=== PATIENT | female | born 1950 | race Caucasian/White ===

== ENCOUNTER 2016-07-13 07:24 | Inpatient (IN) ==
[2016-07-13] MEDS ORDERED: CeFAZolin Pre 2,000 MG/100 ML 2,000 MG/100 ML BAG IVPB ONE (07:46)
[2016-07-13] MEDS ORDERED: Ringers Solution, Lactated 1,000 ML IVC SCH ×2 (08:00→15:42)
[2016-07-13] MEDS ORDERED: *HR* Labetalol 100 MG/20 ML MDV IVP PRN (08:08)
[2016-07-13] MEDS ORDERED: Famotidine 20 MG/2 ML VIAL IVP ONE (08:08)
[2016-07-13] MEDS ORDERED: *HR* HYDROmorphone (PF) 1 MG/ML SYRINGE IVP PRN (08:08)
[2016-07-13] MEDS ORDERED: *HR* Promethazine 25 MG/ML VIAL IVP PRN (08:08)
[2016-07-13] MEDS ORDERED: Gabapentin 300 MG CAPSULE PO STA (08:09)
--- NOTE | 2016-07-13 08:16 | Anesthesia Evaluation PreOp ---
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: Denies Any Significant HX Other Medical History: Denies Any Significant HX, Other (maintained on urinary stress incontinence/spasms maintained on Oxybutnin) Anesthesia History: No Prior Anesthetic Complications, Past Anesthesia (R eye strabismus surgery 1952, T&A, Ectopic removal, jaclyn, Appy, BTL, Cardiac Ablation, R-TKR 03/2012, L partial knee replacement 2010) Alcohol Use: none Drug use: none Medications and Allergies Amlodipine [Norvasc] 5 mg PO DAILY 07/13/16 [History] Ascorbate Calcium [Vitamin C] 500 mg PO DAILY 07/13/16 [History] Aspirin 81 mg PO DAILY 07/13/16 [History] Atorvastatin [Lipitor] 40 mg PO HS 07/13/16 [History] Cephalexin [Keflex] 250 mg PO DAILY 07/13/16 [History] Cholecalciferol (D-3) [Vitamin D] 1,000 unit PO DAILY 07/13/16 [History] Cranberry Fruit Extract [Cranberry] 500 mg PO DAILY 07/13/16 [History] Docusate [Colace] 100 mg PO DAILY 07/13/16 [History] Hydrochlorothiazide 12.5 mg PO DAILY 07/13/16 [History] Lisinopril [Zestril] 40 mg PO DAILY 07/13/16 [History] Melatonin [Melatin] 3 mg PO HS 07/13/16 [History] Oxybutynin Chloride [Ditropan Xl] 5 mg PO HS 07/13/16 [History] Allergies band aids Adverse Reaction (Uncoded 07/06/16 08:56) Rash - Meds/Allergy Pre-op Review Medications Reviewed: Yes Allergies Reviewed: Yes Beta Blockers on Current Med List: No Anesthesia Results - Labs Laboratory Tests 12/31/15 07/06/16 07/06/16 08:59 09:10 09:10 Hgb 13.9 Sodium 142 Potassium 3.9 Chloride 106 Carbon Dioxide 29 BUN 19 Creatinine 0.72 Est GFR (Non-Af Amer) > 60 Glucose 88 - Imaging EKG: image reviewed (52bpm w/ 1st degree AVB, borderline LAD) Anesthesia Exam O2 Sat Height 1.61 m Height 1.61 m Weight 85.729 kg Weight 85.729 kg O2 Sat by Pulse Oximetry 91 O2 Sat by Pulse Oximetry 91 Vital Signs Temp Pulse Resp BP Pulse Ox 97.2 F L 68 18 142/84 91 L 07/13/16 07:59 07/13/16 07:59 07/13/16 07:59 07/13/16 07:59 07/13/16 07:59 - HEENT Pupil (Motor): Pupils equal, EOMI Mallampati: II (Gap front upper teeth, Upper R-front tooth chipped) Teeth: Normal Oral Opening: Greater than 3 - FLY FISHING GUIDE LOC: Oriented FLY FISHING GUIDE Motor: Normal RUE, Normal LUE, Normal RLE, Normal LLE, Normal Face FLY FISHING GUIDE Sensory: Normal: RUE, LUE, RLE, LLE, Face - Cardiac Rhythm: Regular Murmur: None JVD: No - Pulmonary Breath Sounds: bilateral Clear Respiratory Effort: Symmetrical Anesthesia Assess/Plan ASA Score: 2 Modified Briana Scale for Level of Consciousness: Cooperative, oriented, and tranquil Anesthetic Plan: General Monitoring Plan: Standard Monitors Recovery Plan: PACU Anes Supervising Prov Stmt: Pt seen/evaluated, R&B discussed, questions answered and consent obtained. Preston Chamberlain MD
[2016-07-13] MEDS ORDERED: Lidocaine -MPF 2% 2 ML VIAL ONE (08:22)
[2016-07-13] MEDS ORDERED: *HR* Midazolam HCl 2 MG/2 ML VIAL ONE (08:22)
[2016-07-13] MEDS ORDERED: *HR* FentaNYL (PF) 100 MCG/2 ML VIAL ONE ×2 (08:22→11:35)
[2016-07-13] MEDS ORDERED: *HR* Propofol 200 MG/20 ML VIAL IVP ONE (08:22)
[2016-07-13] MEDS ORDERED: Ketorolac 30 MG/ML VIAL ONE ×2 (08:22→08:23)
[2016-07-13] MEDS ORDERED: Ondansetron 4 MG/2 ML VIAL ONE (08:22)
[2016-07-13] MEDS ORDERED: *HR* Rocuronium Bromide 50 MG/5 ML VIAL ONE (08:22)
[2016-07-13] MEDS ORDERED: Dexamethasone 4 MG/ML VIAL ONE (08:23)
[2016-07-13] MEDS ORDERED: Lidocaine/EPI 1:100k 1% 20 ML VIAL ONE (08:58)
[2016-07-13] MEDS ORDERED: Lidocaine/EPI 1:200k 1% PF 10 ML VIAL ONE ×2 (08:58→13:18)
[2016-07-13] MEDS ORDERED: Bupivacaine/EPI 1:200k 0.5%PF 30 ML VIAL ONE (08:58)
--- NOTE | 2016-07-13 09:01 | History & Physical Report ---
Date of Encounter: 07/13/16 Time of Encounter: 09:01 24 Hour HP Update - Instructions Instructions: If the History and Physical is less than 30 days old and was completed prior to A.M. admission and or procedure and has NOT been updated on calendar day of procedure please complete this update prior to performing procedure. - Update Patient reports changes in Medical Condition: No Changes in assessment/condition: No Changes in Medication: No Preop tests/diagnostics Reviewed: Yes Surgery Remains Indicated: Yes Consent for Planned Operative Procedure(s) Verified: Yes - Pre-Operative Checklist Preoperative Checklist Indicated: Yes Prophylactic Antibiotic Ordered: Yes Home Medications Include Beta [place]: No Beta [place] Taken Today (Day of Surgery): No Beta [place] Taken Yesterday (Day Prior to Surgery): No Is VTE Prophylaxis Indicated?: Yes
[2016-07-13] MEDS ORDERED: ROPIVACAINE HCL/PF 0.5% 30 ML VIAL ONE (09:49)
[2016-07-13] MEDS ORDERED: EPHEDrine 50 MG/ML VIAL ONE (10:47)
[2016-07-13] MEDS ORDERED: Neostigmine Methylsulfate 3 MG/3 ML SYRINGE ONE (13:10)
--- NOTE | 2016-07-13 14:44 | OB/GYN Procedure Note ---
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 - Diagnosis Date of procedure: 07/13/16 Pre-op diagnosis: Pelvic prolapse, stress urinary incontinence Post-op diagnosis: same - Procedure Procedure: supracervical hyst with bso, tvt, cystoscopy, rectocele repair, sacrocolpex Surgeon: Sky Evans Resourcing Advisor: Lien Dewitt Anesthesia Type: General Estimated blood loss (cc): 400 Fluids: crystalloid Procedure Complications: None Specimens collected: Uterus bilateral fallopian tubes and ovaries Disposition: PACU Findings: Normal uterus tubes and ovaries Narrative: Patient is a 66-year-old female with pelvic prolapse symptoms of difficulty with voiding and recurrent urinary tract infections as well as difficulty with defecation. Patient also pressure symptoms. She desired definitive surgical management was aware of the risks and signed appropriate consent. Description of procedure: Patient was taken operating room where general anesthesia was administered she was prepped and draped in usual sterile fashion in low dorsal lithotomy position. Bladder was drained of clear urine. 30 mL of dilute local was injected behind the symphysis pubis in the left and right side. 2 small stab wounds were then made. 30 mL local was injected below the vaginal mucosa symphysis pubis on the left and right. Small stab wound was made. Using a bladder guide bladder was deflected towards the patient's left side. Oleary blood tinged in the vagina. I did visit TVT needle through the suburethral incision out through the right lower quadrant incision. I then deflected the bladder towards the patient's right side using a bladder guide and with clefting in the vagina I Pl. the TVT needle through the suburethral incision up to the left lower abdominal incision. At this point the catheter is removed and l cystoscopy was performed. There were strong ureteral jets bilaterally and there is no evidence of bladder trauma. The TVT mesh was tagged and attention was turned to the abdominal portion procedure. Scalpel was used to make nasal skin incision was sharply taken down the rectus fascia. Fascial incision was extended bilaterally and rectus muscles were divided. Peritoneum was entered bluntly. Peritoneal incision was extended. Coronary Gonogra self retraining retractor was placed. Uterus was identified with normal appearance as were both fallopian tubes and ovaries. The right ovary was pulled towards the midline and the infundibulopelvic pelvic ligament was cauterized and ligated with LigaSure. The round Ligament on the right side was then cauterized and ligated with LigaSure. The broad ligament were then cauterized and transected using LigaSure. On the left side the left lip and 2% or towards midline and left infundibulopelvic pelvic ligament was cauterized and transected using LigaSure. The round ligament on the left side was then cauterized and transected with LigaSure. The broad ligament on left service and cauterized and transected with LigaSure. Dissected along the lower uterine segment bladder was taken down approximately 3 cm long anterior vaginal vault. I then entered the peritoneum posteriorly and dissected along the posterior vaginal to distance proximal 4 cm. Sacral promontory was noted and opened the peritoneum over the sacral promontory. 2 single 0 Vicryl sutures are placed through the longitudinal ligament. The mesh was then fitted to the cervix and several 0 Shelby-Dennis sutures were used to affix the wire mesh anteriorly and posteriorly along the vaginal wall. The tail of the mesh was then taken to the 2 previous placed over Shelby-Dennis sutures in the sacral promontory and this mesh was affixed to them. This point a retroperitonealized mesh with 3-0 Vicryl suture. Irrigation was performed hemostasis was ensured fascia was closed with oh loop PDS. Skin edges reapproximated with puneet. At this point I also pulled the TVT needles mesh up gently around a #9 Hegar dilator and the sheath was removed and the tails of the mesh were clipped. Edges over the mesh were closed with skin glue the anterior vaginal mucosa was closed with 4-0 Caprosyn. Patient had excellent anterior vaginal support this point still still did have somewhat of a rectocele. Posterior vaginal mucosa was injected with 1% lidocaine with epinephrine and M Shane incision was made over the posterior fourchette. I then injected the posterior vaginal wall with 1% lidocaine with epinephrine. I dissected up to the rectovaginal fascia on each side. The fascia was reapproximated with several 2-0 Vicryl sutures. Excess vaginal mucosa was removed and skin edges were reapproximated with 3-0 Vicryl. Vaginal packing was placed. All sponge and instruments counts are correct and patient was taken recovery in good condition.
--- NOTE | 2016-07-13 15:07 | Anesthesia Evaluation Post Op ---
Date of Encounter: 07/13/16 Time of Encounter: 15:06 - Vital Signs Vital Signs: Vital Signs/O2 Sat, Most Current Temp Pulse Resp BP Pulse Ox 97.9 F 73 16 136/81 93 L 07/13/16 14:58 07/13/16 14:58 07/13/16 14:58 07/13/16 14:58 07/13/16 14:58 - Lungs Lungs: Clear Ascult./Percussion - Airway Airway: Non-obstructed - Cardiovascular Regular Rate - Mental Status Mental Status: Asleep with brisk response to light stimulation - Pain Pain Scale: 5 Pain Scale used: Numeric (1 - 10) - Nausea Vomiting Nausea Vomiting: Not Present - Hydration Hydration: Ice chips, Oleary catheter - Discharge PostOp Status: Transfer Patient to floor
[2016-07-13] MEDS ORDERED: Naloxone 0.4 MG/ML INJ IVP PRN (15:42)
[2016-07-13] MEDS ORDERED: Ondansetron 4 MG/2 ML VIAL IVP PRN (15:42)
[2016-07-13] MEDS: *HR* HYDROmorphone 2 MG/ML SYRINGE IVP PRN ×2 (15:55→19:55)
[2016-07-14 04:29] LABS: Basophils % 0.1 %; Hematocrit 38.5 % (35.3-44.9); Hemoglobin 12.4 g/dL (11.5-15.4); Immature Granulocytes % 0.5 % (0-4); Lymphocytes # 0.8 K/mcL (0.6-4.6); Lymphocytes % 4.9 %; Mean Corpuscular HGB Conc 32.2 g/dL (31.6-35.5); Mean Corpuscular Hemoglobin 30.6 pg (28.0-33.3); Mean Corpuscular Volume 95.1 fL (83.0-100.0); Mean Platelet Volume 10.4 fL (9.4-12.4); Monocytes # 0.8 K/mcL (0.0-1.3); Monocytes % 4.6 %; Neutrophils # 15.5 K/mcL (1.6-8.9); Platelet Count 277 K/mcL (140-400); Red Blood Count 4.05 M/mcL (3.82-4.97); Red Cell Distribution Width 12.9 % (11.5-14.5); Segmented Neutrophils % 89.9 %
--- NOTE | 2016-07-14 07:52 | OB/GYN Progress Note ---
Date of Encounter: 07/14/16 Time of Encounter: 07:50 - Assessment and Plan (1) Status post hysterectomy with oophorectomy Current Visit: Yes Status: Acute Pt doing well s/p supracervical hyst with BSO, TVT and rectocele repair. Cont. post op care. Subjective - Subjective Principal diagnosis: s/p hyst. bso, rectocele repair and TVT Interval history: Pt doing well. No n/v, good pain control. Has ambulated beside bed. Objective - Vital Signs Vital Signs: Vital Signs Temp Pulse Pulse Resp BP Pulse Ox 07/14/16 02:55 98.0 F 65 16 138/82 96 07/13/16 23:45 97.6 F 67 14 128/81 96 07/13/16 20:00 98.0 F 62 14 128/79 96 07/13/16 18:30 97.5 F L 65 65 16 111/70 96 07/13/16 17:30 97.5 F L 70 79 18 121/76 95 07/13/16 17:07 97.4 F L 79 79 18 114/69 96 07/13/16 16:30 97.4 F L 79 18 114/69 96 07/13/16 16:00 97.6 F 71 71 16 130/75 93 L 07/13/16 15:30 97.4 F L 63 60 18 129/79 95 07/13/16 15:08 97.9 F 72 18 121/93 93 L 07/13/16 14:58 97.9 F 73 16 136/81 93 L 07/13/16 14:48 70 22 133/80 93 L 07/13/16 14:38 72 24 129/80 95 07/13/16 14:28 98.3 F 77 24 113/73 95 07/13/16 10:46 76 16 146/89 92 L 07/13/16 08:01 97.2 F L 68 18 142/84 91 L 07/13/16 07:59 97.2 F L 68 18 142/84 91 L Intake and Output 07/13/16 07/13/16 07/14/16 15:59 23:59 07:59 Output Total 550 / 550 250 / 250 350 / 350 Balance -550 / -550 -250 / -250 -350 / -350 Output: Estimated Blood Loss 400 / 400 Urine Amount (Catheter) 150 / 150 Catheter 250 / 250 350 / 350 Other: Weight 85.275 kg 86.725 kg Patient Weight 07/14/16 23:59 Weight 86.725 kg - Exam Auscultation: bilateral: normal Abdomen: Present: other (soft , nt/nd) - Labs Labs: Abnormal lab results WBC 17.3 K/mcL (4.3-11.1) H 07/14/16 03:56 Neutrophils # 15.5 K/mcL (1.6-8.9) H 07/14/16 03:56
[2016-07-14] MEDS: amLODIPine 5 MG TABLET PO SCH (09:32)
[2016-07-14] MEDS: Aspirin 81 MG TAB.CHEW PO SCH (09:32)
[2016-07-14] MEDS: Lisinopril 20 MG TABLET PO SCH (09:32)
[2016-07-14] MEDS: hydroCHLOROthiazide 25 MG TABLET PO SCH (09:33)
[2016-07-14] MEDS: *HR* OxyCODONE/APAP 5/325 TABLET PO PRN (13:41)
[2016-07-15 07:44] VITALS: BP 150/88
--- NOTE | 2016-07-15 08:10 | Discharge Summary ---
Outpatient Proc Discharge Plan - Plan Prescriptions: OxyCODONE/APAP 5/325 [Percocet 5/325 MG] 1 each PO Q4HR PRN #40 tablet PRN Reason: Severe Pain (7-10) Ibuprofen [Motrin] 600 mg PO Q6HR PRN #40 tab PRN Reason: posst op pain Home Medications: Amlodipine [Norvasc] 5 mg PO DAILY 07/13/16 [History] Ascorbate Calcium [Vitamin C] 500 mg PO DAILY 07/13/16 [History] Aspirin 81 mg PO DAILY 07/13/16 [History] Atorvastatin [Lipitor] 40 mg PO HS 07/13/16 [History] Cephalexin [Keflex] 250 mg PO DAILY 07/13/16 [History] Cholecalciferol (D-3) [Vitamin D] 1,000 unit PO DAILY 07/13/16 [History] Cranberry Fruit Extract [Cranberry] 500 mg PO DAILY 07/13/16 [History] Docusate [Colace] 100 mg PO DAILY 07/13/16 [History] Hydrochlorothiazide 12.5 mg PO DAILY 07/13/16 [History] Lisinopril [Zestril] 40 mg PO DAILY 07/13/16 [History] Melatonin [Melatin] 3 mg PO HS 07/13/16 [History] Oxybutynin Chloride [Ditropan Xl] 5 mg PO HS 07/13/16 [History] Ibuprofen [Motrin] 600 mg PO Q6HR PRN #40 tab 07/15/16 [Rx] OxyCODONE/APAP 5/325 [Percocet 5/325 MG] 1 each PO Q4HR PRN #40 tablet 07/15/16 [Rx]
[2016-07-15] MEDS: Aspirin 81 MG TAB.CHEW PO SCH (08:17)
[2016-07-15] MEDS: *HR* OxyCODONE/APAP 5/325 TABLET PO PRN (08:17)
--- NOTE | 2016-07-15 08:17 | Discharge Summary ---
Date of Encounter: 07/15/16 Time of Encounter: 08:18 - Discharge Diagnosis (1) Status post hysterectomy with oophorectomy Priority: Primary Status: Acute Comments: Pt is ambulating in halls and taking regular diet. Cath out this am, has been unable to void until this point, will continue voiding trials. - Discharge Medications Prescriptions: OxyCODONE/APAP 5/325 [Percocet 5/325 MG] 1 each PO Q4HR PRN #40 tablet PRN Reason: Severe Pain (7-10) Ibuprofen [Motrin] 600 mg PO Q6HR PRN #40 tab PRN Reason: posst op pain Home Medications: Amlodipine [Norvasc] 5 mg PO DAILY 07/13/16 [History] Ascorbate Calcium [Vitamin C] 500 mg PO DAILY 07/13/16 [History] Aspirin 81 mg PO DAILY 07/13/16 [History] Atorvastatin [Lipitor] 40 mg PO HS 07/13/16 [History] Cephalexin [Keflex] 250 mg PO DAILY 07/13/16 [History] Cholecalciferol (D-3) [Vitamin D] 1,000 unit PO DAILY 07/13/16 [History] Cranberry Fruit Extract [Cranberry] 500 mg PO DAILY 07/13/16 [History] Docusate [Colace] 100 mg PO DAILY 07/13/16 [History] Hydrochlorothiazide 12.5 mg PO DAILY 07/13/16 [History] Lisinopril [Zestril] 40 mg PO DAILY 07/13/16 [History] Melatonin [Melatin] 3 mg PO HS 07/13/16 [History] Oxybutynin Chloride [Ditropan Xl] 5 mg PO HS 07/13/16 [History] Ibuprofen [Motrin] 600 mg PO Q6HR PRN #40 tab 07/15/16 [Rx] OxyCODONE/APAP 5/325 [Percocet 5/325 MG] 1 each PO Q4HR PRN #40 tablet 07/15/16 [Rx] Allergies/Adverse Reactions: Allergies band aids Adverse Reaction (Uncoded 07/06/16 08:56) Rash Data Procedures and tests throughout hospitalization: Laboratory Tests 07/14/16 03:56 WBC 17.3 H RBC 4.05 Hgb 12.4 Hct 38.5 MCV 95.1 MCH 30.6 MCHC 32.2 RDW 12.9 Plt Count 277 MPV 10.4 Immature Gran % 0.5 Seg Neutrophils % 89.9 Lymphocytes % 4.9 Monocytes % 4.6 Eosinophils % 0.0 Basophils % 0.1 Neutrophils # 15.5 H Lymphocytes # 0.8 Monocytes # 0.8 Eosinophils # 0.0 Basophils # 0.0 - Impressions Doing well s/p sacrocolpopexy and hysterectomy. Still undergoing voiding trials. Was able to void up to 100 cc yesterday. 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 Attestation: Total time spent providing and/or coordinating discharge services: Exam - Constitutional Vitals: Temp Pulse Resp BP Pulse Ox 98.3 F 76 16 150/88 92 L 07/15/16 07:43 07/15/16 07:43 07/15/16 07:43 07/15/16 07:43 07/15/16 07:43 General appearance IM: A&O X 3 - Respiratory Respiratory exam: Present: CTAB - Cardiovascular Cardiovascular exam IM: Present: RRR - GI/Abdominal GI/Abdominal exam IM: normal bowel sounds Incision: normal, intact - Extremities Exam Extremities exam IM: Present: full ROM - Neurological Exam Neurological exam: oriented X3 - VTE Documentation of Mechanical Device: Intermittent pneumatic compression device
[2016-07-15] MEDS: amLODIPine 5 MG TABLET PO SCH (08:18)
[2016-07-15] MEDS: Lisinopril 20 MG TABLET PO SCH (08:18)
[2016-07-15] MEDS: hydroCHLOROthiazide 25 MG TABLET PO SCH (08:19)
== END 2016-07-15 13:00 | disposition home or self-care (01) | DRG 743 ==
LOC: SAMDAY 07:24 → 1NENUOBS 15:42
PROVIDERS: ADMIT Obstetrics & Gynecology; ATTEND Obstetrics & Gynecology

== ENCOUNTER 2021-08-06 11:48 | Inpatient (IN) ==
[2021-08-06] MEDS ORDERED: 0.9 % Sodium Chloride 500 ML IVC ONE (13:10)
[2021-08-06] MEDS ORDERED: Isovue-370 500 ML BOTTLE IVP ONE (13:11)
[2021-08-06] MEDS ORDERED: Ondansetron 4 MG/2 ML VIAL IVP ONE (13:11)
[2021-08-06 13:53] LABS: Eosinophils # 0.1 K/mcL (0.0-0.6); Hemoglobin 12.3 g/dL (11.5-15.4); Mean Corpuscular HGB Conc 32.4 g/dL (31.6-35.5); Mean Corpuscular Hemoglobin 30.6 pg (28.0-33.3); Mean Corpuscular Volume 94.5 fL (83.0-100.0); Mean Platelet Volume 9.8 fL (9.4-12.4); Platelet Count 570 K/mcL (140-400); Red Blood Count 4.02 M/mcL (3.82-4.97); Red Cell Distribution Width 16.3 % (11.5-14.5); White Blood Count 10.6 K/mcL (4.3-11.1)
[2021-08-06 14:20] LABS: Lymphocytes # 2.2 K/mcL (0.6-4.6); Monocytes # 0.7 K/mcL (0.0-1.3); Neutrophils # 7.2 K/mcL (1.6-8.9); Platelet Estimate Increased (Normal)
[2021-08-06 14:25] LABS: Influenza A PCR Negative (Negative); Influenza B PCR Negative (Negative); Resp. Syncytial Virus PCR Negative (Negative)
[2021-08-06 14:30] LABS: Albumin 2.8 g/dL (3.5-5.7); Albumin/Globulin Ratio 0.8 (1.1-2.2); Bilirubin,Direct 0.1 mg/dL (0.0-0.2); Bilirubin,Indirect 0.4 mg/dL (0.0-1.0); Bilirubin,Total 0.5 mg/dL (0.3-1.0); Calcium 8.3 mg/dL (8.6-10.3); Globulin 3.3 g/dL (2.4-3.5); Magnesium 2.6 mg/dL (1.6-2.6); Potassium 4.5 mEq/L (3.5-5.1); Total Protein 6.1 g/dL (6.4-8.9)
[2021-08-06] MEDS ORDERED: 0.9 % Sodium Chloride 1,000 ML IVC ONE (14:42)
[2021-08-06 14:44] LABS: SARS-CoV-2 by PCR (In House) Negative (Negative)
[2021-08-06] MEDS ORDERED: Ketorolac 30 MG/ML VIAL IVP STA (15:56)
[2021-08-06] MEDS ORDERED: D5% in Lactated Ringers 1,000 ML IVC SCH (16:00)
[2021-08-06] MEDS ORDERED: *HR* HYDROcodone/Acet 5/325 mg TABLET PO PRN (17:51)
[2021-08-06] MEDS ORDERED: *HR* OxyCODONE Immed Rel 5 MG TABLET PO PRN (17:51)
[2021-08-06] MEDS ORDERED: Ondansetron 4 MG/2 ML VIAL IVP PRN (17:51)
[2021-08-06] MEDS ORDERED: Acetaminophen 325 MG TABLET PO PRN (17:51)
[2021-08-06] MEDS ORDERED: Naloxone 0.4 MG/ML INJ IVP PRN (17:51)
[2021-08-06] MEDS ORDERED: Oxymetazoline Nasal SPRAY BOTTLE 15ML NS PRN (17:55)
[2021-08-06] MEDS ORDERED: 0.9 % Sodium Chloride 1,000 ML IVC SCH (18:00)
[2021-08-06] MEDS ORDERED: SODIUM CHLORIDE/NAHCO3/KCL/PEG 4,000 ML SOLN.RECON PO ONE (18:44)
[2021-08-06] MEDS: Piperacillin/Tazobactam 3.375 GM in 0.9 % Sodium Chloride Mini Bag 100 ML IVPB SCH (19:29)
[2021-08-06] MEDS ORDERED: Vancomycin Oral Soln 125 MG/2.5 ML UDC PO SCH (21:00)
[2021-08-07] MEDS: Piperacillin/Tazobactam 3.375 GM in 0.9 % Sodium Chloride Mini Bag 100 ML IVPB SCH ×3 (03:41→18:59)
[2021-08-07] MEDS: *HR* Heparin 5,000 UNIT/ML VIAL SQ SCH ×2 (05:48→18:52)
[2021-08-07 05:53] LABS: Adenovirus F 40/41 PCR Not detected (Not detect); Astrovirus PCR Not detected (Not detect); C.difficile Toxin A/B Gene PCR Not detected (Not detect); Campylobacter by PCR Not detected (Not detect); Cryptosporidium by PCR Not detected (Not detect); Cyclospora cayetanensis PCR Not detected (Not detect); E. coli O157 by PCR Not detected (Not detect); Entamoeba histolytica PCR Not detected (Not detect); Enteroaggregative E.coli(EAEC) Not detected (Not detect); Enteropathogenic E.coli(EPEC) Not detected (Not detect); Enterotoxigenic E.coli (ETEC) Not detected (Not detect); Giardia lamblia PCR Not detected (Not detect); Norovirus GI/GII PCR Not detected (Not detect); Plesiomonas shigelloides PCR Not detected (Not detect); Rotavirus A PCR Not detected (Not detect); Salmonella PCR Not detected (Not detect); Sapovirus PCR Not detected (Not detect); Shig/EnteroinvasiveE coli EIEC Not detected (Not detect); Shigalike tox-prod E coli STEC Not detected (Not detect); Vibrio PCR Not detected (Not detect); Vibrio cholerae PCR Not detected (Not detect); Yersinia enterocolitica PCR Not detected (Not detect)
[2021-08-07 06:31] LABS: INR 1.2; Prothrombin Time 13.2 Seconds (9.4-12.1)
[2021-08-07 06:35] LABS: Eosinophils # 0.2 K/mcL (0.0-0.6); Hematocrit 34.6 % (35.3-44.9); Mean Corpuscular HGB Conc 30.3 g/dL (31.6-35.5); Mean Corpuscular Hemoglobin 29.7 pg (28.0-33.3); Mean Corpuscular Volume 97.7 fL (83.0-100.0); Mean Platelet Volume 9.7 fL (9.4-12.4); Platelet Count 428 K/mcL (140-400); Red Blood Count 3.54 M/mcL (3.82-4.97); Red Cell Distribution Width 16.4 % (11.5-14.5); White Blood Count 8.8 K/mcL (4.3-11.1)
[2021-08-07 06:45] LABS: Calcium 7.2 mg/dL (8.6-10.3); Magnesium 2.3 mg/dL (1.6-2.6); Phosphorous 4.1 mg/dL (2.7-4.5); Potassium 4.3 mEq/L (3.5-5.1)
[2021-08-07 06:49] LABS: Hemoglobin 10.5 g/dL (11.5-15.4)
[2021-08-07 07:06] LABS: Lymphocytes # 2.3 K/mcL (0.6-4.6); Monocytes # 0.9 K/mcL (0.0-1.3); Neutrophils # 5.3 K/mcL (1.6-8.9); Platelet Estimate Normal (Normal)
[2021-08-07] MEDS ORDERED: Lidocaine -MPF 2% 5 ML VIAL ONE (12:05)
[2021-08-07] MEDS ORDERED: *HR* Propofol 200 MG/20 ML VIAL IVP ONE ×2 (13:03→13:38)
[2021-08-07] MEDS ORDERED: Simethicone 40 MG/0.6 ML MLS IR ONE (13:28)
[2021-08-07] MEDS: Fluticasone Propionate Nasal 50 MCG/SPRAY BOTTLE NS SCH (18:47)
[2021-08-07] MEDS ORDERED: Dextrose Gel 15 GM/37.5 ML TUBE PO PRN ×2 (20:13)
[2021-08-07] MEDS ORDERED: D5% in Water 1,000 ML IVC PRN (20:13)
[2021-08-07] MEDS ORDERED: *HR* Dextrose 50 % in Water (Syg) 50 ML SYRINGE IVP PRN (20:13)
[2021-08-08] MEDS: MethylPREDNISolone 40 MG/ML VIAL IVP SCH ×3 (01:18→17:16)
[2021-08-08 02:11] LABS: Hematocrit 32.3 % (35.3-44.9); Hemoglobin 10.4 g/dL (11.5-15.4); Mean Corpuscular HGB Conc 32.2 g/dL (31.6-35.5); Mean Corpuscular Hemoglobin 30.7 pg (28.0-33.3); Mean Corpuscular Volume 95.3 fL (83.0-100.0); Mean Platelet Volume 9.9 fL (9.4-12.4); Platelet Count 420 K/mcL (140-400); Red Blood Count 3.39 M/mcL (3.82-4.97); Red Cell Distribution Width 16.5 % (11.5-14.5); White Blood Count 8.9 K/mcL (4.3-11.1)
[2021-08-08 02:22] LABS: Calcium 7.3 mg/dL (8.6-10.3); Potassium 3.8 mEq/L (3.5-5.1)
[2021-08-08 02:59] LABS: Eosinophils # 0.1 K/mcL (0.0-0.6); Monocytes # 0.5 K/mcL (0.0-1.3); Neutrophils # 5.3 K/mcL (1.6-8.9); Reactive Lymphocytes Present (Not Present)
[2021-08-08 03:00] LABS: Platelet Estimate Normal (Normal)
[2021-08-08] MEDS: Piperacillin/Tazobactam 3.375 GM in 0.9 % Sodium Chloride Mini Bag 100 ML IVPB SCH ×2 (04:01→11:26)
[2021-08-08] MEDS: *HR* Heparin 5,000 UNIT/ML VIAL SQ SCH ×2 (05:44→17:17)
[2021-08-08] MEDS: Fluticasone Propionate Nasal 50 MCG/SPRAY BOTTLE NS SCH (08:52)
[2021-08-08] MEDS: Ringers Solution, Lactated 1,000 ML IVC SCH ×3 (08:52→23:18)
[2021-08-08 09:13] LABS: % Iron Saturation 36 % (15-50); Iron 48 mcg/dL (50-170); Transferrin 96 mg/dL (203-362)
[2021-08-08 09:31] LABS: Ferritin 307 ng/mL (10-120)
[2021-08-08 10:23] LABS: Hepatitis B Surface Antibody < 3.10 mIU/mL
[2021-08-08 10:34] LABS: Hepatitis B Surface Antigen Nonreactive (Nonreactive)
[2021-08-09] MEDS: MethylPREDNISolone 40 MG/ML VIAL IVP SCH ×4 (00:45→23:35)
[2021-08-09] MEDS: Ringers Solution, Lactated 1,000 ML IVC SCH ×2 (00:54→05:47)
[2021-08-09 04:45] LABS: Calcium 7.5 mg/dL (8.6-10.3); Potassium 4.6 mEq/L (3.5-5.1)
[2021-08-09 04:48] LABS: Hematocrit 31.6 % (35.3-44.9); Hemoglobin 10.1 g/dL (11.5-15.4); Mean Corpuscular Hemoglobin 29.9 pg (28.0-33.3); Mean Corpuscular Volume 93.5 fL (83.0-100.0); Mean Platelet Volume 9.8 fL (9.4-12.4); Platelet Count 372 K/mcL (140-400); Red Blood Count 3.38 M/mcL (3.82-4.97); White Blood Count 11.8 K/mcL (4.3-11.1)
[2021-08-09] MEDS: *HR* Heparin 5,000 UNIT/ML VIAL SQ SCH ×2 (05:48→16:20)
[2021-08-09 07:28] LABS: Lymphocytes # 1.8 K/mcL (0.6-4.6); Monocytes # 0.2 K/mcL (0.0-1.3); Neutrophils # 9.6 K/mcL (1.6-8.9); Platelet Estimate Normal (Normal)
[2021-08-09 07:29] LABS: Reactive Lymphocytes Present (Not Present)
[2021-08-09] MEDS: Fluticasone Propionate Nasal 50 MCG/SPRAY BOTTLE NS SCH ×2 (08:54→19:39)
[2021-08-09] MEDS: Amoxicillin/Clavulanate 500 MG TABLET PO SCH ×2 (08:59→16:20)
[2021-08-09] MEDS: Pantoprazole 40 MG VIAL IVP SCH (12:27)
[2021-08-10 00:10] LABS: Bilirubin,Urine Negative (Negative); Blood,Urine Negative (Negative); Clarity,Urine Clear (Clear); Color,Urine Light-Yellow (Yellow); Glucose,Urine (UA) Normal (Normal); Ketones,Urine Negative (Negative); Leukocyte Esterase,Urine Negative (Negative); Nitrite,Urine Negative (Negative); Protein,Urine Negative (Neg-Trace); Urobilinogen,Urine Normal (Normal)
[2021-08-10 04:10] LABS: Basophils # 0.1 K/mcL (0.0-0.2); Basophils % 0.7 %; Calcium 7.5 mg/dL (8.6-10.3); Hematocrit 30.8 % (35.3-44.9); Immature Granulocytes % 11.2 % (0-4); Lymphocytes # 1.5 K/mcL (0.6-4.6); Mean Corpuscular HGB Conc 32.5 g/dL (31.6-35.5); Mean Corpuscular Hemoglobin 30.5 pg (28.0-33.3); Mean Corpuscular Volume 93.9 fL (83.0-100.0); Mean Platelet Volume 10.6 fL (9.4-12.4); Monocytes # 0.5 K/mcL (0.0-1.3); Monocytes % 2.9 %; Neutrophils # 12.7 K/mcL (1.6-8.9); Platelet Count 328 K/mcL (140-400); Potassium 5.1 mEq/L (3.5-5.1); Red Blood Count 3.28 M/mcL (3.82-4.97); Segmented Neutrophils % 76.2 %; White Blood Count 16.6 K/mcL (4.3-11.1)
[2021-08-10 04:48] LABS: Platelet Estimate Normal (Normal)
[2021-08-10] MEDS: *HR* Heparin 5,000 UNIT/ML VIAL SQ SCH ×2 (05:19→16:42)
[2021-08-10] MEDS: Amoxicillin/Clavulanate 500 MG TABLET PO SCH ×2 (07:32→16:42)
[2021-08-10] MEDS: MethylPREDNISolone 40 MG/ML VIAL IVP SCH ×3 (07:32→23:04)
[2021-08-10] MEDS: Fluticasone Propionate Nasal 50 MCG/SPRAY BOTTLE NS SCH (07:33)
[2021-08-10] MEDS: Pantoprazole 40 MG VIAL IVP SCH (07:33)
[2021-08-10] MEDS ORDERED: 0.9 % Sodium Chloride 1,000 ML IVC SCH ×2 (08:45)
[2021-08-10 12:55] LABS: Hepatitis B Core Ab Total NEGATIVE (Negative)
[2021-08-10 20:59] LABS: Hematocrit 31.6 % (35.3-44.9); Hemoglobin 10.2 g/dL (11.5-15.4)
[2021-08-11] MEDS: *HR* Heparin 5,000 UNIT/ML VIAL SQ SCH ×2 (05:26→18:21)
[2021-08-11] MEDS: Amoxicillin/Clavulanate 500 MG TABLET PO SCH ×2 (08:48→18:16)
[2021-08-11] MEDS: Fluticasone Propionate Nasal 50 MCG/SPRAY BOTTLE NS SCH (08:48)
[2021-08-11] MEDS ORDERED: predniSONE 20 MG TABLET PO SCH (09:00)
[2021-08-11] MEDS: Pantoprazole 40 MG VIAL IVP SCH (09:14)
[2021-08-11 10:36] LABS: Calcium 7.7 mg/dL (8.6-10.3)
[2021-08-11 14:58] LABS: Hematocrit 34.9 % (35.3-44.9); Hemoglobin 10.8 g/dL (11.5-15.4); Mean Corpuscular HGB Conc 30.9 g/dL (31.6-35.5); Mean Corpuscular Volume 96.9 fL (83.0-100.0); Mean Platelet Volume 9.6 fL (9.4-12.4); Nucleated Red Blood Cells 0.1 /100 WBC (0); Platelet Count 349 K/mcL (140-400); Red Cell Distribution Width 16.2 % (11.5-14.5); White Blood Count 20.1 K/mcL (4.3-11.1)
[2021-08-11 15:12] LABS: Lymphocytes # 1.2 K/mcL (0.6-4.6); Monocytes # 1.6 K/mcL (0.0-1.3); Neutrophils # 16.5 K/mcL (1.6-8.9); Platelet Estimate Normal (Normal)
[2021-08-11 15:13] LABS: Reactive Lymphocytes Present (Not Present)
[2021-08-11 16:56] LABS: QuantiFERON Mitogen minus NIL 2.24 IU/mL
[2021-08-11 17:19] VITALS: BP 103/72; PULSE 110; TEMP 97.4; O2SAT 94
[2021-08-12 10:05] LABS: QuantiFERON NIL 0.01 IU/mL; QuantiFERON-TB Gold In-Tube NEGATIVE (Negative)
[2021-08-13 08:45] LABS: Saccharomyces cerevisiae IgA 44.2 Units (0.0-24.9)
== END 2021-08-11 19:01 | disposition home health service (06) | DRG 385 ==
LOC: 3BNU 11:48 → EMEROOARM 11:48 → 3BNU 21:38
PROVIDERS: ADMIT Student in an Organized Health Care Education/Training Program; ATTEND Student in an Organized Health Care Education/Training Program
PROC: ENDOCBX (2021-08-07 12:00)